=== PATIENT | male | born 1955 | race Caucasian/White ===

== ENCOUNTER → 2020-07-14 15:56 | Outpatient (CLI) | payer BC, SELFPAY ==
--- NOTE | ~2020-07-14 | XR_ITS ---
EXAMINATION: XR knee RT 3V DATE: 07/14/2020 16:29 INDICATION: Right knee pain. TECHNIQUE: 3 views of right knee were obtained. COMPARISON: None. FINDINGS: There is varus angulation at the knee. No fracture. There is moderate osteoarthritis of med ial compartment and mild osteoarthritis of lateral and patellofemoral compartments. No knee joint eff usion. IMPRESSION: 1. Moderate right knee osteoarthritis. Reviewed, dictated and finalized at location A.
--- NOTE | ~2020-07-14 | XR_ITS ---
EXAMINATION: XR knee LT 3V DATE: 07/14/2020 16:29 INDICATION: Left knee pain. TECHNIQUE: 3 views of left knee were obtained. COMPARISON: None. FINDINGS: Bone alignment is normal. No fracture. There is severe osteoarthritis of medial compartment , moderate osteoarthritis of patellofemoral compartment, and mild osteoarthritis of lateral compartme nt. No knee joint effusion. There are surgical clips in the medial soft tissues. IMPRESSION: 1. Severe left knee osteoarthritis. Reviewed, dictated and finalized at location A.
== END ==
PROVIDERS: Visit Provider Nurse Practitioner Family
DX: M25.561 Pain in right knee (principal); M17.0 Bilateral primary osteoarthritis of knee
CPT/HCPCS: 73562

== ENCOUNTER → 2020-10-20 16:55 | Outpatient (CLI) | payer BC, SELFPAY ==
--- NOTE | ~2020-10-20 | XR_ITS ---
XR hand RT min 3V 10/20/2020 18:53 Indication: Painful right third metacarpal phalangeal joint. Procedure: 3 views right hand Comparison: No prior studies for comparison. Findings: There is polyarticular osteoarthritis of the right hand including the interphalangeal joint s and metacarpophalangeal joints. No acute fracture or traumatic malalignment. There is a small forei gn body overlying the second middle phalanx. Impression: 1: Moderate polyarticular osteoarthritis of the right hand. 2: Foreign body adjacent to the second middle phalanx. Reviewed, dictated and finalized at location A. CTOR OF HOME ECONOMICS Impression: 1: Moderate polyarticular osteoarthritis of the right hand. 2: Foreign body adjacent to the second middle phalanx.
== END ==
PROVIDERS: PCP Family Medicine; Visit Provider Plastic Surgery
DX: M19.041 Primary osteoarthritis, right hand (principal)
CPT/HCPCS: 73130

== ENCOUNTER 2021-01-05 16:50 | Outpatient (CLI) | payer BC, SELFPAY | END 2021-01-05 16:51 | disposition home or self-care (01) | LOC: ANHCOVIDVC 16:50 | PROVIDERS: PCP Family Medicine | DX: Z23 Encounter for immunization (principal) | CPT/HCPCS: 0001A; 91300 ==

== ENCOUNTER 2021-01-26 16:47 | Outpatient (CLI) | payer BC, SELFPAY | END 2021-01-26 16:48 | disposition home or self-care (01) | LOC: ANHCOVIDVC 16:47 | PROVIDERS: PCP Family Medicine | DX: Z23 Encounter for immunization (principal) | CPT/HCPCS: 0002A; 91300 ==

== ENCOUNTER → 2021-08-03 07:56 | Outpatient (CLI) | payer MEDICARE, SELFPAY ==
--- NOTE | ~2021-08-03 | US_ITS ---
EXAMINATION: US abdomen limited EXAM DATE: 08/03/2021 08:35 INDICATION: K82.4 - Cholesterolosis of gallbladder. TECHNIQUE: Multiple grayscale and Doppler images of the abdomen right upper quadrant were obtained (reji y a technologist who performed the scan) and subsequently reviewed. Comparison is made to prior exami nation from 11/15/2019. FINDINGS: The pancreatic head and body are normal in appearance. The pancreatic tail is not visualized. There is echogenic liver parenchyma, hepatic steatosis. There are no focal liver lesions identified. Th ere is no evidence of intrahepatic biliary duct dilation. Portal venous flow was seen in the hepatop edal, normal direction and has normal Doppler waveform. No right-sided hydronephrosis. Common bile duct measures 4 mm, which is normal. The gallbladder wall is normal in thickness, with ex pected amount of distention. No sonographic evidence of pericholecystic fluid. There are several fo ci which appear to be nonmobile, gallbladder polyps, largest measuring up to 7-8 mm. These appear unc hanged compared to 2020, but modest growth compared to 2016. Still most likely benign. Technologist p erforming exam reports patient did not demonstrate sonographic Guan's sign. Please note that this sign is less reliable in patients who have received pain medication. IMPRESSION: 1. Small gallbladder polyps measuring up to 7-8 mm; consider additional one-year follow-up ultrasoun d. 2. Hepatic steatosis. Reviewed, dictated and finalized at location A. IMPRESSION: 1. Small gallbladder polyps measuring up to 7-8 mm; consider additional one-ye ar follow-up ultrasound. 2. Hepatic steatosis.
== END ==
PROVIDERS: PCP Family Medicine; Visit Provider Surgery
DX: K82.4 Cholesterolosis of gallbladder (principal); K76.0 Fatty (change of) liver, not elsewhere classified
CPT/HCPCS: 76705

== ENCOUNTER → 2022-08-18 07:57 | Outpatient (CLI) | payer MEDICARE, SELFPAY ==
--- NOTE | ~2022-08-18 | US_ITS ---
EXAMINATION: US abdomen limited DATE: 08/18/2022 08:40 INDICATION: Cholesterolosis of the gallbladder. Gallbladder polyp. TECHNIQUE: Multiple grayscale and Doppler ultrasound images of the abdomen were obtained. COMPARISON: Ultrasound 08/03/2021 FINDINGS: The visualized portions of the head and body of the pancreas are normal. There is diffuse h epatic steatosis. No liver surface nodularity. There is normal flow in main portal vein. The gallblad paras is normal in size. No gallstones or gallbladder wall thickening. No gallbladder polyp identified. There is no sonographic Guan sign. The common duct is normal and measures 4 mm. There is a 3.3 cm cyst in right kidney. IMPRESSION: 1. Normal gallbladder. 2. Diffuse hepatic steatosis. Reviewed, dictated and finalized at location B.
== END ==
PROVIDERS: PCP Family Medicine; Visit Provider Surgery
DX: K82.4 Cholesterolosis of gallbladder (principal); K76.0 Fatty (change of) liver, not elsewhere classified
CPT/HCPCS: 76705

== ENCOUNTER → 2023-02-16 13:41 | Outpatient (CLI) | payer MEDICARE, SELFPAY ==
--- NOTE | ~2023-02-16 | XR_ITS ---
XR knee LT 3V DATE: 02/16/2023 14:10 INDICATION: Bilateral knee pain, osteoarthritis TECHNIQUE: Standing AP and lateral views. War view. COMPARISON: None FINDINGS: Mild superior pole patellar enthesopathy at quadriceps tendon insertion. Severe narrowing of the medial compartment joint space. There is mild periarticular spurring at the p atellofemoral and lateral compartments. No fracture or dislocation, periosteal reaction or bone destruction, radiopaque intra-articular body or chondrocalcinosis is noted. Small suprapatellar knee joint effusion may be present. There are surgical clips along the posterior medial aspect of the knee. IMPRESSION: Tricompartment osteoarthritis, most severe at the medial compartment Small suprapatellar knee joint effusion may be present Reviewed, dictated and finalized at location B. IMPRESSION: Tricompartment osteoarthritis, most severe at the medial compartmen t Small suprapatellar knee joint effusion may be present
--- NOTE | ~2023-02-16 | XR_ITS ---
XR knee RT 3V 02/16/2023 14:10 Indication: Osteoarthritis of the knee Procedure: 3 views right knee Comparison: 07/14/2020 Findings: There is mild tricompartment osteoarthritis of the right knee. No fracture, subluxation or dislocation. There is atherosclerosis. No significant joint effusion. No foreign bodies. Impression: 1: Mild tricompartment osteoarthritis of the right knee. Reviewed, dictated and finalized at location A. Impression: 1: Mild tricompartment osteoarthritis of the right knee.
== END ==
PROVIDERS: PCP Family Medicine; Visit Provider Nurse Practitioner Family
DX: M17.0 Bilateral primary osteoarthritis of knee (principal); M25.462 Effusion, left knee
CPT/HCPCS: 73562

== ENCOUNTER → 2023-07-18 10:13 | Outpatient (CLI) | payer MEDICARE, SELFPAY ==
--- NOTE | ~2023-07-18 | XR_ITS ---
Clinical Indication: Cough PA and lateral views of the chest: Comparison: 02/14/2019 Findings: There is probable chronic scarring left lung base, unchanged. No acute pulmonary abnormalit y seen. Cardiomediastinal silhouette is stable, status post median sternotomy. Bones and soft tissue s are unremarkable. Impression: No acute abnormality. Stable probable chronic left basilar scarring. Reviewed, dictated and finalized at location . Impression: No acute abnormality. Stable probable chronic left basilar scarring.
== END ==
PROVIDERS: PCP Physician Assistant; Visit Provider Physician Assistant
DX: R05.9 Cough, unspecified (principal)
CPT/HCPCS: 71046

== ENCOUNTER → 2023-10-04 15:44 | Outpatient (CLI) | payer MEDICARE, SELFPAY ==
--- NOTE | ~2023-10-04 | XR_ITS ---
XR lumbar spine min 4V 10/04/2023 16:27 Indication: Low back pain Procedure: 5 views lumbar spine Comparison: No prior studies for comparison. Findings: There is disc narrowing at L3-4, L4-5 and L5-S1. Moderate multilevel facet hypertrophy. No fracture or traumatic malalignment. Mild levoscoliosis. No evidence for spondylolisthesis. No acute f racture or traumatic malalignment. Impression: 1: Severe lumbar spondylosis. Reviewed, dictated and finalized at location B. RVISOR TRAIN OPERATIONS Impression: 1: Severe lumbar spondylosis.
--- NOTE | ~2023-10-04 | XR_ITS ---
XR abdomen/kub 1V 10/04/2023 16:27 INDICATION: Flank pain TECHNIQUE: KUB COMPARISON: None FINDINGS: Bowel gas pattern is normal. Calcifications in the pelvis are believed to be phleboliths. T here is no evidence of free air, mass, organomegaly, ascites or obstruction. No abnormal calculi are seen. The bones appear intact. IMPRESSION: 1: No acute abdominal abnormality identified. Reviewed, dictated and finalized at location L. RGROUND MINING SECTION FOREMAN
== END ==
PROVIDERS: PCP Physician Assistant; Visit Provider Physician Assistant
DX: M47.816 Spondylosis without myelopathy or radiculopathy, lumbar region (principal); R10.9 Unspecified abdominal pain
CPT/HCPCS: 72110; 74018

== ENCOUNTER → 2023-12-14 13:32 | Outpatient (CLI) | payer MEDICARE, SELFPAY ==
--- NOTE | ~2023-12-14 | XR_ITS ---
Right Knee Technique: AP, lateral, and sunrise views were obtained. Clinical History: Pain Findings: No fracture or dislocation is seen. Osseous alignment is anatomic. There is medial compartm ent narrowing with medial joint line osteophyte formation. There is minimal patellar spurring. Soft t issues are unremarkable. No joint effusion is seen. Impression: Degenerative change, as detailed above. Reviewed, dictated and finalized at location . LER TECHNICIAN Impression: Degenerative change, as detailed above.
--- NOTE | ~2023-12-14 | XR_ITS ---
Left Knee Technique: AP, lateral, and sunrise views were obtained. Clinical History: Pain Findings: No fracture or dislocation is seen. Osseous alignment is anatomic. There is medial compartm ent narrowing, with medial joint line osteophyte formation. There is mild patellar spurring. Soft tis sues are unremarkable. No joint effusion is seen. Impression: Degenerative change, as detailed above. Reviewed, dictated and finalized at location M. PATIONAL MEDICINE SPECIALIST Impression: Degenerative change, as detailed above.
== END ==
PROVIDERS: PCP Orthopaedic Surgery; Visit Provider Orthopaedic Surgery
DX: M25.561 Pain in right knee (principal); M25.562 Pain in left knee
CPT/HCPCS: 73564

== ENCOUNTER 2024-04-20 13:08 | Outpatient (CLI) | payer MEDICARE, SELFPAY ==
--- NOTE | 2024-04-20 13:27 | ECG_ITS ---
Test Date: 2024-04-20 13:31:59 Measurements Intervals [place] Rate: 76 P: 54 NE: 196 QRS: 8 QRSD: 154 T: 11 QT: 409 QTc: 462 Interpretive Statements SINUS RHYTHM INDETERMINATE AXIS RIGHT BUNDLE BRANCH BLOCK [120+ ms QRS DURATION, UPRIGHT V1, 40+ ms S IN I/aVL/V4/V5/V6] ABNORMAL ECG No previous ECG available for comparison Electronically Signed On 04-20-2024 15:27:20 CDT by Kavon Hunter M.D.
[2024-04-20 13:48] LABS: Hematocrit 44.9 % (42.0-52.0); Hemoglobin 15.5 g/dL (14.0-18.0)
[2024-04-20 13:56] LABS: Albumin Level 4.3 g/dL (3.5-5.1); Estimated Glomerular Filt Rate > 60; Glucose 134 mg/dL (65-110)
== END 2024-04-20 13:09 | disposition home or self-care (01) ==
LOC: ANHLAB 13:12
PROVIDERS: PCP Family Medicine; Visit Provider Orthopaedic Surgery
DX: K76.0 Fatty (change of) liver, not elsewhere classified (principal); M17.12 Unilateral primary osteoarthritis, left knee; E11.9 Type 2 diabetes mellitus without complications; I25.10 Atherosclerotic heart disease of native coronary artery without angina pectoris; Z01.818 Encounter for other preprocedural examination; I45.10 Unspecified right bundle-branch block
CPT/HCPCS: 36415; 82040; 82565; 82947; 85014; 85018; 93005

== ENCOUNTER 2024-05-30 07:56 | Outpatient (CLI) | payer MEDICARE, SELFPAY ==
[2024-05-30 09:37] LABS: Basophils Absolute Auto 0.1 K/mm3 (0.0-0.1); Basophils Percent Auto 0.6 % (0.2-1.2); Eosinophils Absolute Auto 0.3 K/mm3 (0-0.3); Eosinophils Percent Auto 3.3 % (0-4.4); Hematocrit 48.4 % (42.0-52.0); Hemoglobin 16.2 g/dL (14.0-18.0); Immature Granulocyte Absolute 0.04 K/mm3 (0.00-0.031); Immature Granulocyte Percent A 0.5 % (0-0.5); Lymphocytes Absolute Auto 1.84 K/mm3 (0.9-3.2); Lymphocytes Percent Auto 23.3 % (18.3-44.2); Mean Corpuscular HGB Conc 33.5 g/dl (32-36); Mean Corpuscular Volume 92.5 fl (80-100); Mean Platelet Volume 9.6 fl (7.4-10.4); Monocytes Absolute Auto 0.6 K/mm3 (0.1-0.6); Monocytes Percent Auto 7.2 % (2.6-8.5); Neutrophils Absolute Auto 5.1 K/mm3 (1.3-6.7); Neutrophils Percent Auto 65.1 % (45.5-73.1); Platelet Count Result 212 k/mm3 (150-375); Red Blood Count 5.23 M/mm3 (4.6-6.20); Red Cell Distribution Width 14.6 % (11.5-14.5); White Blood Count 7.9 K/mm3 (4.5-10.0)
[2024-05-30 09:45] LABS: Urine Cotinine NEGATIVE
[2024-05-30 09:51] LABS: Albumin Level 4.4 g/dL (3.5-5.1); Estimated Glomerular Filt Rate > 60; Glucose 120 mg/dL (65-110)
[2024-05-30 10:01] LABS: Hemoglobin A1C 6.7 % (<5.7)
[2024-05-30 10:46] LABS: MRSA (PCR) NOT DETECTED (NOT DETECTE)
== END 2024-05-30 07:57 | disposition home or self-care (01) ==
PROVIDERS: PCP Family Medicine; Visit Provider Orthopaedic Surgery
DX: Z01.818 Encounter for other preprocedural examination (principal); M17.12 Unilateral primary osteoarthritis, left knee
CPT/HCPCS: 80307; 82040; 82565; 82947; 83036; 85025; 87641

== ENCOUNTER 2024-06-26 02:05 | Day surgery (SDC) | payer MEDICARE, SELFPAY ==
[2024-05-30 08:18] VITALS: BP 144/77; PULSE 74; RESP 16; TEMP 36.4; O2SAT 98; BMI 39.7
--- NOTE | 2024-05-30 08:43 | PC.NURSE ---
Addendum entered by Amanda Henderson RN 05/30/24 09:08: Total Joint Class 06/06/24 at 1000am - May take Tylenol as needed for pain if needed. Original Note: Report to the Outpatient Waiting Room, entrance under the green pavilion located off [facility], at time __08:30am ____ on date __06/26/24 . Planned Procedure Time: __10:30am . Time changes happen often and if your time is changed the preop area will call you the afternoon before. - You and your visitor will be asked to self-screen and do not enter if you have any COVID symptoms. - A mask is optional within the hospital at this time. Patients may have clear liquids (water, carbonated beverages, clear teas, apple juice) until 3 hours prior to surgery with a maximum of 20 ounces. - No food from midnight until time of surgery - Infants may have breast milk until 4 hours before surgery, formula 6 hours prior to surgery. Take the following medications with a SIP of water the morning of surgery: Metoprolol. May use Albuteral inhaler as needed DO NOT STOP ANY OF YOUR OTHER PRESCRIPTION MEDICATIONS PRIOR TO SURGERY ?EXCEPT THE FOLLOWING Medications to discontinue per physician Stop aspirin and all NSAIDS [address] Walker Date to take last dose__06/18/24 Hold all vitamins and supplements 3 days prior to surgery per Anesthesia. Last dose is 06/22/24. Please no make-up, nail bhutanese, hairspray, perfume, deodorant, or body powder the day of surgery. No jewelry (including any body piercings) or valuables the day of surgery, leave them at home. Please take a shower or bath the night before, or the morning of, surgery with an antibacterial soap. Wear comfortable, loose fitting clothing. - Jewelry must be removed prior to entering the operating room. Rings and piercings that are not removed may be cut off. - The hospital will not accept responsibility for valuables. - Please leave all valuables, including medications, at home the day of surgery. If you are going home after surgery, a licensed trailer tank truck driver must drive you home. - NO public transportation without another adult if you receive anesthesia. - We recommend that an adult stay with you for 24 hours following discharge. - We also recommend that you do not drive, make important decision, drink alcoholic beverages, or take any drugs that were not prescribed by your health care provider for at least 24 hours after your discharge time. Follow any additional instructions given to you from your surgeon. If you or anyone in your household have experienced Covid symptoms in the past week, please notify your surgeon or the nurse liaison at the phone number below for possible testing. Telephone instructions given to ___patient and and asked if any additional questions and then verbalized understanding. Patient advised to call surgeon office or pre surgery nurse liaison [phone] if any additional questions.
[2024-06-26] VITALS (18 sets, daily range): BP systolic 114–145; BP diastolic 58–79; PULSE 61–83; RESP 11–20; TEMP 36.2–37; O2SAT 95–100
--- NOTE | ~2024-06-26 | XR_ITS ---
EXAMINATION: [id number] DATE: 06/26/2024 12:52 CDT INDICATION: Left total knee arthroplasty TECHNIQUE: 2 views left knee FINDINGS: There is a left total knee arthroplasty in expected position. Subcutaneous gas with fluid and air in the joint are consistent with recent surgery. No evidence of periprosthetic fracture. IMPRESSION: 1. Recent left total knee arthroplasty. Reviewed, dictated and finalized at location B.
[2024-06-26] MEDS: ACETAMINOPHEN 500 MG TABLET 1000 MG PO (09:17)
[2024-06-26] MEDS: LACTATED RINGERS 1,000 ML 30 ML IV CONT ×2 (09:25→12:15)
--- NOTE | 2024-06-26 09:43 | WPDANESEPPF ---
Anes - Initial Pre Proc Eval Procedure: Operation Date: 06/26/24 10:30 Proposed Procedures p Left Total Knee Arthroplasty - Leonid Walker MD Date/Time: 06/26/24 09:43 Surgeon: Leonid Walker MD Pre Op Diagnosis: primary oa left knee Patient Data Age: 69 Gender: M Height: 1.74 m Weight: 120.3 kg Last Vital Signs Temp 97.5 F L 05/30/24 08:18 Pulse 74 05/30/24 08:18 Resp 16 05/30/24 08:18 BP 144/77 H 05/30/24 08:18 Pulse Ox 98 05/30/24 08:18 O2 Del Method Room Air 05/30/24 08:18 Allergies Allergy/AdvReac Type Severity Reaction Status Date / Time Penicillins Allergy Unknown Verified 05/30/24 09:31 Home Medications Medication Instructions Recorded Confirmed Type aspirin 81 mg tablet,delayed 81 mg PO DAILY 11/02/19 06/26/24 History release metoprolol succinate 25 mg 25 mg PO DAILY 11/02/19 06/26/24 History tablet,extended release 24 hr atorvastatin 20 mg tablet 20 mg PO QHS #90 tabs 02/03/22 06/26/24 Rx albuterol sulfate 90 mcg/actuation 1 puff inhalation Q4-6H PRN 07/18/23 05/30/24 Rx aerosol inhaler shortness of breath or wheezing #8.5 grams tirzepatide 2.5 mg/0.5 mL 2.5 mg subcut WEEKLY 01/02/24 06/26/24 History subcutaneous pen injector (Mounjaro) pantoprazole 20 mg tablet,delayed 20 mg PO QAM #90 tabs 01/26/24 06/26/24 Rx release tamsulosin 0.4 mg capsule (Flomax) 0.4 mg PO DAILY #90 caps 04/25/24 06/26/24 Rx acetaminophen 500 mg capsule 1,000 mg PO Q6H PRN Pain 05/30/24 05/30/24 History empagliflozin 25 mg tablet 25 mg PO DAILY 05/30/24 06/26/24 History (Jardiance) multivitamin 1 tablet PO DAILY 05/30/24 06/26/24 History Laboratory Tests 06/26/24 09:31 Sodium Pending Potassium Pending Chloride Pending Carbon Dioxide Pending Anion Gap Pending BUN Pending Creatinine Pending Estim Creat Clear Calc Pending Estimated GFR Pending Glucose Pending Calcium Pending Blood Type Pending Antibody Screen Pending Patient hx anesthesia problems: none Family hx anesthesia problems: none Results Review: All pre-operative results and documents have been reviewed as part of the pre-operative evaluation. [facility] Past Medical History Medical History Abscess of skin of neck Asthma Cyst of hand Diabetes History of heart attack Surgical History Surgical History H/O knee surgery Bilateral Knees H/O parotidectomy left; with revision H/O shoulder surgery Right shoulder History of colon surgery History of heart bypass surgery History of throat surgery Family History Family History Father Family history of hemophilia Mother Family history of malignant neoplasm of thyroid Family history of malignant neoplasm Other Family history of allergic disorder Social History Social History Smoking status: Never smoker Second hand tobacco smoke exposure: No Additional smoking assessment comments: denies any form of tobacco use Alcohol intake: never Substance use: never Substance use type: does not use Do You Feel Safe in your Home?: Yes Lack of Transportation: No Lack of Food: Never True Current Housing: I Have Housing Concerned About Future Housing: No Difficulty Paying Gas/Electric Bills: No Difficulty Paying for Meds: No Currently Unemployed: No Education: Associate Degree Difficulty w/ Childcare or Family Care: No Living arrangements: with family Additional living arrangements comments: Occupation/Education: occupation Gender identity (if verbalized by the patient): Male Sexual Orientation (if Verbalized by the Patient): Straight or Heterosexual Spiritual care joseph
[2024-06-26 09:57] LABS: Anion Gap 12 mmol/L (4-12); Blood Urea Nitrogen 18 mg/dL (9-20); Calcium 8.9 mg/dL (8.4-10.2); Carbon Dioxide 24 mmol/L (22-30); Chloride 105 mmol/L (98-107); Estimated CRCL calculation 78 ml/min; Estimated Glomerular Filt Rate > 60; Glucose 147 mg/dL (65-110); Sodium 141 mmol/L (137-145)
--- NOTE | 2024-06-26 09:57 | WPDHPUPDATE1 ---
History and Physical Update Update Date/Time: 06/26/24 09:57 History and Physical has been reviewed, including an updated exam of the patient. There are NO changes in the patient's condition. Risks, benefits, and alternatives have been discussed and questions answered. Patient agrees to proceed with procedure.
[2024-06-26] MEDS: SODIUM CHLORIDE 0.9% IV 37.7 ML, MORPHINE SULFATE INJ (*CRX) 2 MG, ROPivacaine HCL 1% 2... INFILTRATE (10:16)
[2024-06-26] MEDS: ceFAZolin 2 GM/D5W 50 ML 2 GM/50 ML BAG IVPB ×2 (10:16→16:50)
[2024-06-26] MEDS: TRANEXAMIC ACID 1,000MG/ISO100 1,000 MG/100 ML BAG 200 MG IVPB (10:25)
[2024-06-26] MEDS: GENTAMICIN BONE CEMENT REFOBACIN 1 EACH TOPICAL (11:33)
--- NOTE | 2024-06-26 12:43 | W.PM.PROC2 ---
Procedure Note - Detailed Date of Procedure 06/26/24 Pre-op Diagnosis primary oa left knee Post-op Diagnosis Same Procedure Performed Total knee arthroplasty, left Surgeon Leonid Walker MD Chip Drier Ivy Hernandez PA-C Anesthesia General and Regional (subsartorial block) Findings Excellent bone quality. Large medial release required. Standard bone resections. Description of Procedure The patient was brought to the operating room. A general anesthetic was administered. The leg was prepped and draped in the usual sterile fashion. The limb was elevated and the tourniquet inflated to 300 mmHg. A longitudinal incision was created along the medial border of the patella and patellar tendon, and a trivector approach to the knee was performed. A moderate initial medial release was taken. The knee was then flexed. The osteophytes were carefully removed. The intramedullary guide was placed in the femoral canal. The distal femoral resection was then taken with the oscillating saw. The collateral ligaments were carefully protected. The tibia was carefully exposed. The jig was applied, and the proximal tibia was resected according to preoperative plan. The knee was balanced in extension. Additional medial release was required. The anterior cruciate ligament and meniscal remnants were removed. The posterior cruciate ligament was preserved. The patella was measured. Patellar resection was carried out with the oscillating saw. The lug holes drilled. The femur was sized and rotation assessed using a combination of gap balancing, posterior referencing, and the AP axis. The 4 in 1 cutting block was used to finish the femoral cuts after equal gaps were assured. The osteophytes were carefully removed from the back of the knee. The knee was copiously irrigated with antibiotic solution periodically throughout the procedure. The meniscal remnants were removed. The spacer block was used to confirm equal flexion and extension gaps. No further releases were needed. The tibia was sized and broached. The bony surfaces were prepared for cementing with pulsatile lavage. The real tibia was cemented into position. The femur was press-fit. The patella was press-fit. Excess cement was carefully removed. Patellar tracking was carefully assessed. No additional releases were required. Copious irrigation then performed. The wound was closed with #1 Vicryl suture, #2, 2-0, and 3-0 barbed suture, followed by Steri-Strips. A sterile bulky dressing was applied. Meticulous hemostasis was maintained throughout the procedure, and the bipolar cautery device was used. The pain relieving mixture was injected into the periarticular tissues during the procedure. There were no complications. The patient was extubated and brought to the recovery room in stable condition after the application of sterile dressing with Pee bandage. [employer] Triathlon knee system, Low profile cemented tibia size 5, press-fit cruciate retaining femoral component size 5, 13 mm cruciate retaining polyethylene insert. 38mm asymmetric tritanium patella component. Estimated Blood Loss 100 Drains No Pathology None sent Complications No immediate complications Condition Stable Disposition PACU [facility] Billing Surgery - Charge Forward: Surgery Billing
--- NOTE | 2024-06-26 13:42 | SUR.PHASEI ---
Patient meets PACU discharge criteria, unit bed unavailable at this time. Patient placed in extended recovery status.
[2024-06-26 13:52] LABS: Glucose Point of Care 188 mg/dl (65-105)
[2024-06-26] MEDS: ASPIRIN 81 MG ENTERIC TABLET PO (16:49)
[2024-06-26] MEDS: SENNA/DOCUSATE SODIUM TABLET 2 TAB PO (16:49)
[2024-06-26] MEDS: ACETAMINOPHEN 325 MG TABLET 650 MG PO ×2 (16:49→23:28)
[2024-06-26] MEDS: ATORVASTATIN 20 MG TABLET PO (20:59)
[2024-06-27] MEDS: ceFAZolin 2 GM/D5W 50 ML 2 GM/50 ML BAG IVPB ×2 (01:05→09:04)
[2024-06-27 02:00] VITALS: BP 118/63; PULSE 64; RESP 18; TEMP 36.5; O2SAT 95
[2024-06-27] MEDS: ACETAMINOPHEN 325 MG TABLET 650 MG PO (05:01)
[2024-06-27 05:03] VITALS: BP 114/55; PULSE 57; RESP 16; TEMP 36.5; O2SAT 96
[2024-06-27 05:31] LABS: Basophils Percent Auto 0.2 % (0.2-1.2); Eosinophils Absolute Auto 0.1 K/mm3 (0-0.3); Eosinophils Percent Auto 0.5 % (0-4.4); Hematocrit 41.4 % (42.0-52.0); Hemoglobin 13.7 g/dL (14.0-18.0); Immature Granulocyte Absolute 0.06 K/mm3 (0.00-0.031); Immature Granulocyte Percent A 0.5 % (0-0.5); Lymphocytes Absolute Auto 1.46 K/mm3 (0.9-3.2); Lymphocytes Percent Auto 11.8 % (18.3-44.2); Mean Corpuscular HGB Conc 33.1 g/dl (32-36); Mean Corpuscular Hemoglobin 31.2 pg (26-34); Mean Corpuscular Volume 94.3 fl (80-100); Mean Platelet Volume 10.2 fl (7.4-10.4); Monocytes Absolute Auto 1.1 K/mm3 (0.1-0.6); Monocytes Percent Auto 8.8 % (2.6-8.5); Neutrophils Absolute Auto 9.6 K/mm3 (1.3-6.7); Neutrophils Percent Auto 78.2 % (45.5-73.1); Platelet Count Result 189 k/mm3 (150-375); Red Blood Count 4.39 M/mm3 (4.6-6.20); Red Cell Distribution Width 14.5 % (11.5-14.5); White Blood Count 12.3 K/mm3 (4.5-10.0)
[2024-06-27 05:44] LABS: Anion Gap 9 mmol/L (4-12); Blood Urea Nitrogen 16 mg/dL (9-20); Calcium 8.5 mg/dL (8.4-10.2); Carbon Dioxide 23 mmol/L (22-30); Chloride 104 mmol/L (98-107); Estimated CRCL calculation 96 ml/min; Estimated Glomerular Filt Rate > 60; Glucose 157 mg/dL (65-110); Potassium 4.3 mmol/L (3.4-5.0); Sodium 136 mmol/L (137-145)
--- NOTE | 2024-06-27 08:40 | PM.DS ---
DS: Admitting Diagnosis Discharge Date 06/27/24 Admitting Diagnosis Knee arthritis. DS: Discharge Diagnosis Discharge Diagnosis (1) Status post total left knee replacement: Code(s): Z96.652 - Presence of left artificial knee joint Status: Acute Assessment and Plan: Postop day 1: Left total knee arthroplasty. Patient tolerated procedure well. No complications. Pain manageable with pain medication. No numbness or tingling. We had a lengthy discussion regarding postoperative wound care, limitations, expectations, and exercises. Patient shows good understanding. He has had initial physical therapy and is tolerating it well. DVT prophylaxis: 81 mg baby aspirin b.i.d. for 14 days. Pain medication: Percocet. Patient has followup appointment with Dr. Walker in 3 weeks. DS: Summary Hospital Course Reason for hospitalization: Total knee arthroplasty Hospital Course: Patient tolerated procedure well. Has had initial PT/OT. No complications. Pain well managed. Status at Discharge Functional status at discharge: uses cane/walker Overall status at discharge: patient is progressing back to baseline Time Spent with Patient Time attestation: Total time spent providing and/or coordinating discharge services: Exam Narrative: Overweight 69 y/o Male. Resting comfortably in chair. No acute distress. A&O x3. Wearing compression socks bilaterally. Dressing intact with no drainage. Moderate swelling. No ecchymosis. No erythema. No hematoma. Good early range of motion. 10-95. Fires quad. Calf nontender. Neurologic status intact. No varicosities. Distal pulses palpable. DS: Data Data Completed and Pending Labs on day of discharge: Labs from last 24 hours 06/27/24 06/26/24 06/26/24 04:57 12:39 09:31 WBC 12.3 H RBC 4.39 L Hgb 13.7 L Hct 41.4 L MCV 94.3 MCH 31.2 MCHC 33.1 RDW 14.5 Plt Count 189 MPV 10.2 Immature Gran % (Auto) 0.5 Neut % (Auto) 78.2 H Lymph % (Auto) 11.8 L [place] % (Auto) 8.8 H Eos % (Auto) 0.5 Baso % (Auto) 0.2 Lymph # (Auto) 1.46 [place] # (Auto) 1.1 H Eos # (Auto) 0.1 Baso # (Auto) 0.0 Abs Immat Gran (auto) 0.06 H Absolute Neuts (auto) 9.6 H Absolute Nucleated RBC 0.000 Nucleated RBC % 0.0 Sodium 136 L 141 Potassium 4.3 4.0 Chloride 104 105 Carbon Dioxide 23 24 Anion Gap 9 12 BUN 16 18 Creatinine 0.80 1.00 Estim Creat Clear Calc 96 78 Estimated GFR > 60 > 60 Glucose 157 H 147 H POC Capillary Glucose 188 H Calcium 8.5 8.9 Blood Type A Negative Antibody Screen Negative Discharge Plan Discharge Patient Disposition: Home, Self-Care Discharge Instructions: See green instruction sheets Stand Alone Forms: General Discharge Instructions Follow-up/Referrals: Ivy Hernandez PA [Physician Insect Control Aide] - Discharge Medications: New prednisone 5 mg tablet 5 mg PO DAILY 21 Days Qty: 21 0RF aspirin 81 mg tablet,delayed release (DR/EC) 81 mg PO BID 14 Days Qty: 28 0RF oxycodone-acetaminophen 5-325 mg tablet 1 - 2 tablet PO Q4-6H MDD 6 PRN (Reason: pain) Qty: 30 0RF Continued Mounjaro 2.5 mg/0.5 mL pen injector 2.5 mg subcut WEEKLY Patient Comments: atorvastatin 20 mg tablet 20 mg PO QHS Qty: 90 0RF albuterol sulfate 90 mcg/actuation HFA aerosol inhaler 1 puff inhalation Q4-6H PRN (Reason: shortness of breath or wheezing) Qty: 8.5 0RF Jardiance 25 mg tablet 25 mg PO DAILY acetaminophen 500 mg Capsule 1,000 mg PO Q6H PRN (Reason: Pain) multivitamin Tablet 1 tablet PO DAILY metoprolol succinate 25 mg tablet extended release 24 hr 25 mg PO DAILY aspirin 81 mg tablet,delayed release (DR/EC) 81 mg PO DAILY pantoprazole 20 mg tablet,delayed release (DR/EC) 20 mg PO QAM Qty: 90 3RF tamsulosin [Flomax] 0.4 mg capsule 0.4 mg PO DAILY Qt
[2024-06-27 09:03] VITALS: BP 116/58; PULSE 58; RESP 17; TEMP 36.4; O2SAT 96
[2024-06-27] MEDS: ASPIRIN 81 MG ENTERIC TABLET PO (09:03)
[2024-06-27] MEDS: TAMSULOSIN HCL 0.4 MG CAPSULE PO (09:03)
[2024-06-27] MEDS: EMPAGLIFLOZIN 25 MG TABLET PO (09:03)
[2024-06-27] MEDS: SENNA/DOCUSATE SODIUM TABLET 2 TAB PO (09:03)
[2024-06-27 09:04] VITALS: PULSE 57
[2024-06-27] MEDS: PANTOPRAZOLE SOD SESQUIHYDRATE 20 MG TAB PO (09:04)
[2024-06-27] MEDS: METOPROLOL SUCCINATE EXT REL 25 MG TABCR PO (09:04)
[2024-06-27] MEDS: oxyCODONE/ACETAMINOPHEN (*CRX) 5-325 MG TABLET 1 TABLET PO (11:03)
== END 2024-06-27 12:20 | disposition home or self-care (01) ==
LOC: ANHSURGERY 12:18 → ANH2MED 15:19
PROVIDERS: Anesthesiology; Physician Assistant Surgical; PCP Family Medicine; Visit Provider Orthopaedic Surgery
PROC: (CPT 27447; principal; 2024-06-26 10:30)
DX: M17.12 Unilateral primary osteoarthritis, left knee (principal); E11.9 Type 2 diabetes mellitus without complications; I25.2 Old myocardial infarction; J45.909 Unspecified asthma, uncomplicated; Z95.1 Presence of aortocoronary bypass graft; E66.9 Obesity, unspecified; Z68.38 Body mass index [BMI] 38.0-38.9, adult; Z79.82 Long term (current) use of aspirin; Z79.51 Long term (current) use of inhaled steroids; Z79.85 Long-term (current) use of injectable non-insulin antidiabetic drugs
CPT/HCPCS: 27447; 36415; 73560; 80048; 80307; 82040; 82565; 82947; 82948; 83036; 85025; 86850; 86900; 86901; 87641; 97110; 97161; 97165; A9270; C1713; C1776; J0171; J0330; J0690; J1100; J1170; J1885; J2250; J2270; J2405; J2704; J2795; J3010; J7120

== ENCOUNTER 2024-08-08 14:02 | Outpatient (CLI) | payer MEDICARE, SELFPAY ==
--- NOTE | ~2024-08-08 | XR_ITS ---
XR knee LT 3V 08/08/2024 14:20 Indication: Follow-up right knee preplacement Procedure: 3 views right knee Comparison: 12/14/2023 Findings: There is a left total knee arthroplasty in expected position. No fracture or traumatic derek lignment. Prosthesis well seated. There is patellar resurfacing with patellar component. Moderate sof t tissue swelling. Impression: 1: Status post left total knee arthroplasty. Prosthesis well seated. Reviewed, dictated and finalized at location B. Impression: 1: Status post left total knee arthroplasty. Prosthesis well seated.
== END 2024-08-08 14:03 | disposition home or self-care (01) ==
PROVIDERS: PCP Family Medicine; Visit Provider Orthopaedic Surgery
DX: Z96.652 Presence of left artificial knee joint (principal)
CPT/HCPCS: 73562

== ENCOUNTER 2024-08-14 15:30 | Outpatient (RCR) | payer MEDICARE, SELFPAY ==
--- NOTE | 2024-07-10 16:30 | OPREHPOC ---
Outpatient Therapy Plan of Care This is a Multidisciplinary Plan of Care that may contain components documented by all disciplines (PT, OT, and ST.) PT Problem 1 PT Problem #1 Knowledge Deficit PT Goal 1 Goal / Goal Update *indep with HEP * correct use of assistive device Target Visit 10 PT Problem 2 PT Problem #2 Pain PT Goal 1 Goal / Goal Update 1* decrease pain rating to 3/10 at worst 2* self assessment LE functional scale rating of 50% limitation in activity level 3* pt report sleeping 4 hours at time Target Visit 10 PT Problem 3 PT Problem #3 Impaired Range of Motion PT Goal 1 Goal / Goal Update increase L knee ROM to improve transfer and mobility skills sitting active 1* extension 0' 2* flexion 120' Target Visit 10 PT Problem 4 PT Problem #4 Impaired Functional Mobility PT Goal 1 Goal / Goal Update 1* 2 minute walking test distance of 380' 2* progression to cane for ambulate 3* sit/stand 5 reps in 15 seconds 4* up/down 4 steps without hand railing, alternate step pattern Target Visit 10 PT Problem 5 PT Problem #5 Impaired Strength PT Goal 1 Goal / Goal Update increase strength of L knee to improve mobility 1* 20 reps of mat strengthening exercises 2* sit/stand without use of UE's Target Visit 10
--- NOTE | 2024-07-10 16:31 | PTOPEVAL1 ---
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 LE functional scale rating of 78% limitation of activity level; He has been using the wheeled walker and is doing all the home tasks since his surgery. With the evaluation: 2 minute walking test distance of 260' with wheeled walker; there is bruising and edema over L knee and calf. ROM of L knee active in sitting (-10') to 75'; passive flexion 80'; Skilled PT services for modalities to decrease pain and edema; therapeutic exercises to increase ROM and strength of knee with education for home exercises and gait progression. Plan of Care Interventions Electrical Stimulation,Hot Pack/Cold Pack, Intermittent Compression,Manual Therapy,Neuro Re- education,Patient/Caregiver Education,Therapeutic Activities,Therapeutic Exercise,Other Other Interventions taping PT Services Indicated Yes Treatment Frequency and 2x/wk for 10 visits Duration These treatments will address the objective and functional deficits as defined above. The patient will be advanced safely and appropriately in order for the patient to progress towards his/her prior level of fun
--- NOTE | 2024-08-09 16:02 | PCPTNOTE ---
Pt cancelled due to illness.
--- NOTE | 2024-08-14 16:01 | PTOPDC ---
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 He has made great progress: self assessment functional rating of 41% limitation; is now walking without assistive device, and good gait pattern; alternate step pattern without hand railing on 4 steps; indep with HEP; sitting knee AROM 0-125'; Good strength of L hip and knee. The goals were achieved. Discharge PT. He is to continue with his HEP and increase walking as tolerated. Plan of Care PT Services Indicated No
== END 2024-08-15 09:25 | disposition home or self-care (01) ==
LOC: ANHPT 15:30
PROVIDERS: PCP Family Medicine; Visit Provider Orthopaedic Surgery
DX: Z47.1 Aftercare following joint replacement surgery (principal); Z96.652 Presence of left artificial knee joint
CPT/HCPCS: 97016; 97110; 97140; 97161; 97530

== ENCOUNTER 2025-05-07 16:20 | Outpatient (CLI) | payer MEDICARE, SELFPAY ==
--- NOTE | ~2025-05-07 | XR_ITS ---
EXAM/ PROCEDURE: XR cervical spine min 6V - 05/07/2025 16:24 CDT HISTORY: 69 years old Male with M54.2 - Cervicalgia COMPARISON: None available TECHNIQUE: 7 view(s) FINDINGS/ IMPRESSION: There are no fractures or dislocations.Multilevel degenerative changes are seen. Visualized portion o f lungs are clear. Reviewed, dictated and finalized at location A.
--- NOTE | ~2025-05-07 | XR_ITS ---
HISTORY: M89.8X1 - Other specified disorders of bone, shoulder COMPARISON: None TECHNIQUE: 2 views of the right shoulder were performed FINDINGS: No acute fracture. The glenohumeral and acromioclavicular joint space is narrowed but maintained The visualized portion of the adjacent right lung is clear. The humeral head is well seated within the glenoid fossa. IMPRESSION: No acute fracture or anterior dislocation. Reviewed, dictated and finalized at location A.
== END 2025-05-07 16:21 | disposition home or self-care (01) ==
LOC: MICIMG 16:22
PROVIDERS: PCP Family Medicine; Visit Provider Physician Assistant
DX: M89.8X1 Other specified disorders of bone, shoulder (principal); M50.30 Other cervical disc degeneration, unspecified cervical region
CPT/HCPCS: 72052; 73030

== ENCOUNTER 2025-08-01 17:15 | Outpatient (RCR) | payer MEDICARE, SELFPAY ==
--- NOTE | 2025-05-13 18:07 | OPREHPOC ---
Outpatient Therapy Plan of Care This is a Multidisciplinary Plan of Care that may contain components documented by all disciplines (PT, OT, and ST.) PT Problem 1 PT Problem #1 Knowledge Deficit PT Goal 1 Goal / Goal Update [place] with HEP Target Visit 4 PT Goal 2 Goal / Goal Update Report no pain consistently greater than 2/10 Target Visit 8 PT Problem 2 PT Problem #2 Impaired Functional ADLs PT Goal 1 Goal / Goal Update Report 75% improvement in quantity and quality of sleep with no neck pain Target Visit 8 PT Problem 3 PT Problem #3 Impaired Strength PT Goal 1 Goal / Goal Update 1. Improve R shoulder flexion strength to 4+/5 to improve functional lifting with shoulder stabilization 2. Improve R shoulder external rotation strength to 4+/5 to improve shoulder stability with ADL function Target Visit 8 PT Problem 4 PT Problem #4 Impaired Range of Motion PT Goal 1 Goal / Goal Update Improve jessica cervical rotation motion to 55+ degrees Target Visit 8
--- NOTE | 2025-05-13 18:07 | PTOPEVAL1 ---
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 Reminds him a little bit about when he had rotator cuff issues. He had x-rays which were clean from issues. Reports a lot of his pain is sleeping and relaxing . When he is moving pain is much better. Reports history of some tingling in both hands. Reported Pain Level Pain Score 0: Self Report Assessment PT Clinical Summary Patient presents with limited cervical mobility multidirectional and notable weakness of right rotator cuff. Patient showing signs and symptoms of compressive cervical spine with both radicular and localized pain to rotator cuff area. Will benefit form skilled therapy to improve cervical posture and improve gross strength of right rotator cuff. Plan of Care Interventions Electrical Stimulation,Manual Therapy,Neuro Re- education,Therapeutic Activities,Therapeutic Exercise PT Services Indicated Yes Treatment Frequency and 1-2x/week for 8 visits Duration These treatments will address the objective and functional deficits as defined above. The patient will be advanced safely and appropriately in order for the patient to progress towards his/her prior level of function. Additional exercises will be introduced and as well as a comprehensive home exercise program upon discharge, if needed, ?to ensure carryover of functional gains achieved in the clinic. This treatment plan has been reviewed and agreement upon by the patient.
--- NOTE | 2025-06-24 18:07 | PTOPPROG ---
Assessment and note entered by Jeff Cisneros, PT Evaluation Information Assessment Status Progress ICD-10 Condition Codes (PT) Cervicalgia M54.2 Subjective Information States that overall he feels therapy has really helped. He has been having pain off and on still increased with stress at work and with family. He still has stiffness with rotation and difficulty with turning of the head. 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 Pain is less elevated on a more consistent basis, but seem to be increased at the term of daily activity. Will continue to benefit from skilled therapy for reinforcement of postural stabilization and strengthening to promote reduced cervical stress. Plan of Care Interventions Electrical Stimulation,Manual Therapy,Neuro Re- education,Therapeutic Activities,Therapeutic Exercise PT Services Indicated Yes Treatment Frequency and 1-2x/week for 8 visits Duration These treatments will address the objective and functional deficits as defined above. The patient will be advanced safely and appropriately in order for the patient to progress towards his/her prior level of function. Additional exercises will be introduced and as well as a comprehensive home exercise program upon discharge, if needed, ?to ensure carryover of functional gains achieved in the clinic. This treatment plan has been reviewed and agreement upon by the patient.
--- NOTE | 2025-06-24 18:07 | OPREHPOC ---
Outpatient Therapy Plan of Care This is a Multidisciplinary Plan of Care that may contain components documented by all disciplines (PT, OT, and ST.) PT Problem 1 PT Problem #1 Knowledge Deficit PT Goal 1 Goal / Goal Update [place] with HEP Target Visit 4 Progress Met PT Goal 2 Goal / Goal Update Report no pain consistently greater than 2/10 Target Visit 8 Progress Partially Met PT Problem 2 PT Problem #2 Impaired Functional ADLs PT Goal 1 Goal / Goal Update Report 75% improvement in quantity and quality of sleep with no neck pain 06/24/25: Improved but inconsistency still noted. Target Visit 8 Progress Partially Met PT Problem 3 PT Problem #3 Impaired Strength PT Goal 1 Goal / Goal Update 1. Improve R shoulder flexion strength to 4+/5 to improve functional lifting with shoulder stabilization 2. Improve R shoulder external rotation strength to 4+/5 to improve shoulder stability with ADL function 06/24/25: Needs continued shoulder girdle strengthening Target Visit 16 PT Problem 4 PT Problem #4 Impaired Range of Motion PT Goal 1 Goal / Goal Update Improve jessica cervical rotation motion to 55+ degrees 06/24/25: Mild progress noted. Needs continued reinforcement Target Visit 8
--- NOTE | 2025-07-11 17:29 | PCPTNOTE ---
Patient was a No Show/No Call for today's treatment.
== END 2025-08-11 23:59 | disposition home or self-care (01) ==
LOC: ANHPT 17:15
PROVIDERS: PCP Family Medicine; Visit Provider Physician Assistant
DX: M54.2 Cervicalgia (principal)
CPT/HCPCS: 97110; 97140; 97161; 97530